=== PATIENT | female | born 2005 | race Caucasian/White ===

== ENCOUNTER 2024-07-31 12:50 | Outpatient (CLI) | payer OTHER, SELFPAY | END 2024-07-31 12:51 | disposition home or self-care (01) | LOC: NFLDREF 08-04 18:03 | PROVIDERS: Visit Provider Physician Assistant | DX: N39.0 Urinary tract infection, site not specified | CPT/HCPCS: 87086 ==

== ENCOUNTER 2024-09-15 14:16 | Outpatient (CLI) | payer OTHER, SELFPAY | END 2024-09-15 14:17 | disposition home or self-care (01) | LOC: AMB 09-21 14:57 | PROVIDERS: Visit Provider Emergency Medicine | DX: R10.9 Unspecified abdominal pain (principal) | CPT/HCPCS: A0425; A0427 ==

== ENCOUNTER 2024-09-15 14:51 | Emergency (ER) | payer OTHER, SELFPAY ==
[2024-09-15 15:02] VITALS: BP 110/59; PULSE 68; RESP 16; TEMP 36.1; O2SAT 98; BMI 27.5
--- NOTE | 2024-09-15 15:35 | CRLHL7_ITS ---
For Patients: As a result of the Century Cures Act, medical imaging exams and procedure reports are released immediately into your electronic medical record. You may view this report before your referring provider. If you have questions, please contact your health care provider. Indication: Abdomen pain. Technique: Abdomen 2 view. Comparison: None. Findings: Bowel: Bowel pattern is normal. The amount of colonic stool is within normal limits. Other: No sign of free air. No sign of soft tissue mass. No suspicious calcifications. Osseous structures are unremarkable for age. Impression: Unremarkable abdomen. Dictated by Chato Hollins MD @ 09/15/2024 6:21:11 PM (Electronically Signed)
[2024-09-15 15:52] LABS: Lactate* 1.2 mmol/L (0.5-1.9)
[2024-09-15 15:53] LABS: Basophils Percent Auto 0.1 % (0.0-3.0); Eosinophils Percent Auto 0.3 % (0.0-7.0); Hematocrit 38.8 % (33.0-51.0); Hemoglobin* 12.9 gm/dL (12.0-16.0); Immature Granulocytes Pct Auto 0.2 %; Lymphocytes Percent Auto 5.5 % (20-44); Mean Corpuscular HGB Conc 33 gm/dL (32-36); Mean Corpuscular Hemoglobin 28 pg (26-34); Mean Corpuscular Volume 85 fL (80-100); Neutrophils Percent Auto 88.9 % (42.0-72.0); Platelet Count* 234 K/uL (140-440); RDW Coefficient of Variation % 12.4 % (11.5-15.5); Red Blood Count 4.56 m/uL (4.00-5.20); White Blood Count* 11.12 K/uL (4.50-11.00)
[2024-09-15 15:56] LABS: Slide Review Reflex No
--- NOTE | 2024-09-15 16:10 | ED.GENADULT ---
HPI - General Adult General Chief complaint: Abdominal Pain Stated complaint: Abdominal pain Time Seen by Provider: 09/15/24 15:30 Source: patient and EMS Mode of arrival: EMS Limitations: no limitations History of Present Illness HPI narrative: 19-year-old female brought in via EMS for abdominal pain. Patient states that she has had suprapubic discomfort in the past and that this occurs multiple times before each period, but today the pain was so significant that ?I was on the floor screaming and I could not move?. Her friend called EMS and EMS brought her in. She did receive 2 mg of morphine in the ambulance. Patient states that right now her pain is a 3/10 and states that it is not significant. She states that is located in the suprapubic region and does not radiate. She states that she has had this pain before and she was told that she potentially has endometriosis. She denies any urinary symptoms at her new such as frequency, urgency or dysuria. No change in the color or sent of her urine. No changes in bowel habits. Her menses is due next week. She denies sexual activity. She denies new vaginal discharge. She denies vomiting but felt nauseated when she was in so much pain earlier today. She is unclear of how long her pain lasted today. She denies any weight changes. Related Data Home Medications ?Medication ?Instructions ?Recorded ?Confirmed Jennifer Csota.animal,bifid,infant cap PO 07/31/24 08/28/24 50 billion cell capsule,delayed rel (Fortify [place] Women Probiotic) ascorbic acid (vitamin C) 1,000 mg 1 g PO QDAY 07/31/24 08/28/24 tablet cholecalciferol (vitamin D3) 250 250 mcg PO QWEEK 07/31/24 08/28/24 mcg (10,000 unit) capsule cranberry 500 mg capsule 1,000 mg PO QDAY 07/31/24 08/28/24 hydroxyzine HCl 10 mg tablet 10 - 20 mg PO 3XD PRN anxiety 07/31/24 08/28/24 zinc citrate 11 mg chewable tablet mg PO .every three days 07/31/24 08/28/24 sertraline 50 mg tablet 50 mg PO 08/28/24 08/28/24 Allergies Allergy/AdvReac Type Severity Reaction Status Date / Time No Known Drug Allergies Allergy Verified 09/15/24 14:57 Review of Systems Status of ROS: Reports: 10 or more systems reviewed and unremarkable except as noted in History and below PFSH PFS Social History Narrative: [employer] student, from [facility] Occasional smoker, 1 per week. Denies alcohol or illicit drug use What is your current living situation?: I presently have a place to live In the past 12 months, utilities in danger of being shut off: no In past 12 months, lack of transportation kept you from medical appts, meetings, work, or getting things needed for daily living: no In the past 12 mos, have been you worried that your food would run out before you had money to buy more?: never true In the past 12 mos, the food you bought just didn't last and you didn't have money to buy more?: never true Smoking Status: Never smoker How often do you have a drink containing alcohol: never How often do you have six or more drinks on one occasion: Never AUDIT-C Alcohol total score: 0 Non-prescribed substance use: denies use How often does anyone, including family, friends and others, physically hurt you: never How often does anyone, including family, friends and others, insult or talk down to you: never How often does anyone, including family, friends and others, threaten you with harm: never How often does anyone, including family, friends and others, scream or curse at you: never service: No Exam Narrative: Exam Narrative: Well-nourished well-developed patient in no acute distress. Alert and oriented. Answers questions appropriately. Mood and affect are appropriate. Thoughts are goal oriented and rational. No tangential or magical thinking noted. Patient speaks in full sentences without needing to catch her breath. HEENT: Normocephalic atraumatic. Pupils are equally round reactive to light. Extraocular muscles are intact. Conjunctivae are moist without any icterus noted. Moist mucous membranes. Posterior pharynx is normal. Neck is soft without any lymphadenopathy or thyromegaly. No masses are appreciated. Cardiovascular: Heart is regular rate and rhythm S1 and S2 are present without any murmurs. Lungs: Clear to auscultation bilaterally no wheezes rhonchi or rales are appreciated. Patient takes deep breaths without any discomfort. Abdomen: Soft and nontender nondistended with normal bowel sounds. No guarding or rebound. No masses or organomegaly appreciated. Extremities: Bilateral lower extremities are without edema. Skin: Well perfused without any obvious rashes. Const: Vital Signs, click to edit/add: Vital Signs - 24 hr 09/15/24 15:02 Temperature 97.0 F L Pulse Rate [Pulse Oximeter] 68 Respiratory Rate 16 Blood Pressure [Ri ght Upper Arm] 110/59 L Pulse Oximetry 98 Oxygen Delivery Me thod Room Air Course Course ED Course: For differential diagnoses includes endometriosis, ovarian torsion that has now resolved, ectopic , UTI, constipation. Given the location of her pain things like pancreatitis, appendicitis, gastritis or diverticulitis or much less likely. Workup today was unremarkable. Her lab work did show any evidence of infection or inflammation. Abdominal x-ray , read by me, was unremarkable. Patient was monitor for almost 4 hours and did not have recurrence of her pain. She was drinking fluids without difficulty and was laying comfortably in bed. Vital Signs Vital signs: Initial Vital Signs Temperature 97.0 F L 09/15/24 15:02 Temperature Source Temporal Artery Scan 09/15/24 15:02 Pulse Rate 68 09/15/24 15:02 Pulse Rhythm Regular 09/15/24 15:02 Respiratory Rate 16 09/15/24 15:02 Blood Pressure 110/59 L 09/15/24 15:02 Blood Pressure Mean 76 09/15/24 15:02 Blood Pressure Position High-Fowlers 09/15/24 15:02 Pulse Oximetry 98 09/15/24 15:02 Oxygen Delivery Method Room Air 09/15/24 15:02 Vital Signs Temperature 97.0 F L 09/15/24 15:02 Pulse Rate 68 09/15/24 15:02 Respiratory Rate 16 09/15/24 15:02 Blood Pressure 110/59 L 09/15/24 15:02 Pulse Oximetry 98 09/15/24 15:02 Oxygen Delivery Method Room Air 09/15/24 15:02 Temperature 97.0 F L 09/15/24 15:02 Pulse Rate 68 09/15/24 15:02 Respiratory Rate 16 09/15/24 15:02 Blood Pressure 110/59 L 09/15/24 15:02 Pulse Oximetry 98 09/15/24 15:02 Oxygen Delivery Method Room Air 09/15/24 15:02 Medical Decision Making MDM Narrative Medical decision making narrative: Acute sharp abdominal pain, now resolved. Workup was unremarkable. Patient states that she does get severe cramping before her period and her period is due any day now. This certainly could be symptoms of her menstruation. She has been seen in the past for this. With normal blood work I do not think that further imaging is warranted at this time. Patient will follow-up outpatient. Lab Data Lab results reviewed: Yes I reviewed the patient's lab results Labs: Lab Results 09/15/24 09/15/24 Range/Units 15:48 Unknown WBC 11.12 H (4.50-11.00) K/uL RBC 4.56 (4.00-5.20) m/uL Hgb 12.9 (12.0-16.0) gm/dL Hct 38.8 (33.0-51.0) % MCV 85 (80-100) fL MCH 28 (26-34) pg MCHC 33 (32-36) gm/dL RDW Coeff of Nenita 12.4 (11.5-15.5) % Plt Count 234 (140-440) K/uL Neut % (Auto) 88.9 H (42.0-72.0) % Lymph % (Auto) 5.5 L (20-44) % [facility] % (Auto) 5.0 (0.0-11.0) % Eos % (Auto) 0.3 (0.0-7.0) % Baso % (Auto) 0.1 (0.0-3.0) % Neut # (Auto) 9.90 H (1.7-7.0) K/uL Lymph # (Auto) 0.60 L (0.90-2.90) K/uL [facility] # (Auto) 0.60 (0.00-0.90) K/UL Eos # (Auto) 0.00 (0.00-0.50) K/uL Baso # (Auto) 0.00 (0.00-0.30) K/uL Abs Immat Gran (auto) 0.00 (0.00-0.30) K/uL Imm/Tot Granulo (auto) 0.2 % Sodium 136 (135-149) mmol/L Potassium 3.5 L (3.6-5.1) mmol/L Chloride 103 (96-114) mmol/L Carbon Dioxide 22 (20-32) mmol/L Anion Gap 11 (7-15) mEq/L BUN 8 (5-24) mg/dL Creatinine 0.6 (0.5-1.5) mg/dL Estimated Creat Clear 129.15 Estimated GFR 132 ml/min Glucose 102 (60-115) mg/dL Lactate 1.2 (0.5-1.9) mmol/L Calcium 9.3 (8.4-10.6) mg/dL Total Bilirubin 0.6 (0.1-1.5) mg/dL Direct Bilirubin 0.1 (0.0-0.5) mg/dL AST 23 (12-35) U/L ALT 17 (4-35) U/L Alkaline Phosphatase 57 (40-150) U/L C-Reactive Protein < 0.5 L (0.5-1.0) mg/dL Total Protein 7.1 (6.0-8.3) g/dL Albumin 4.5 (3.3-5.0) g/dL Lipase 33 (23-300) U/L Urine Color Yellow (Yellow) Urine Appearance Clear (Clear) Urine pH 6.0 (5.0-8.5) Ur Specific Odell 1.025 (1.000-1.030) Urine Protein Negative (Negative) Urine Glucose (UA) Negative (Negative) Urine Ketones 2+ A (Negative) Urine Blood Negative (Negative) Urine Nitrite Negative (Negative) Urine Bilirubin Negative (Negative) Urine Urobilinogen 0.2 (0.2-1.0) Ur Leukocyte Esterase Negative (Negative) Urine RBC 0-2 (0-2) Urine WBC 0-2 (0-5) Ur Squamous Epith Cells None (None-Few) Amorphous Sediment Few A (None) Urine Bacteria Moderate A (None) Coarse Granular Casts Few A (None) Urine Mucus Few A (None) Urine HCG, Qual Negative (Negative) Imaging Data Abdominal x-ray: Attestation: I have reviewed the pertinent imaging results. Radiologist's impression: Technique: Abdomen 2 view. Comparison: None. Findings: Bowel: Bowel pattern is normal. The amount of colonic stool is within normal limits. Other: No sign of free air. No sign of soft tissue mass. No suspicious calcifications. Osseous structures are unremarkable for age. Impression: Unremarkable abdomen. Discharge Plan Discharge Clinical Impression: Abdominal pain Additional Instructions: Follow-up with your OBGYN. Prescriptions: No Action hydroxyzine HCl 10 mg tablet 10 - 20 mg PO 3XD PRN (Reason: anxiety) ascorbic acid (vitamin C) 1,000 mg tablet 1 g PO QDAY cranberry 500 mg capsule 1,000 mg PO QDAY Rx Instructions: administer with a meal zinc citrate 11 mg tablet,chewable PO .every three days Fortify [place] Women Probiotic 50 billion cell capsule,delayed release(DR/EC) PO cholecalciferol (vitamin D3) 250 mcg (10,000 unit) capsule 250 mcg PO QWEEK sertraline 50 mg tablet 50 mg PO Follow Up/Referrals: Provider,Not a Local [Primary Care Provider] - Stand Alone Forms: [employer] Info Instructions
[2024-09-15 16:15] LABS: Albumin* 4.5 g/dL (3.3-5.0); Chloride* 103 mmol/L (96-114); Sodium* 136 mmol/L (135-149)
[2024-09-15 16:18] LABS: Anion Gap 11 mEq/L (7-15); Bilirubin Direct* 0.1 mg/dL (0.0-0.5); Bilirubin Total* 0.6 mg/dL (0.1-1.5); Carbon Dioxide* 22 mmol/L (20-32); Creatinine* 0.6 mg/dL (0.5-1.5); Est. Creatinine Clearance* 129.15; Estimated Glomerular Filt Rate 132 ml/min; Potassium* 3.5 mmol/L (3.6-5.1)
[2024-09-15 16:19] LABS: Alanine Aminotransferase* 17 U/L (4-35); Alkaline Phosphatase* 57 U/L (40-150); Aspartate Amino Transferase* 23 U/L (12-35); Blood Urea Nitrogen* 8 mg/dL (5-24); Calcium* 9.3 mg/dL (8.4-10.6); Glucose* 102 mg/dL (60-115); Lipase* 33 U/L (23-300); Total Protein* 7.1 g/dL (6.0-8.3)
[2024-09-15 16:22] LABS: C Reactive Protein* < 0.5 mg/dL (0.5-1.0)
[2024-09-15 17:12] LABS: Appearance Urine Clear (Clear); Bilirubin Urine Negative (Negative); Blood Urine Negative (Negative); Color Urine Yellow (Yellow); Glucose Urine Negative (Negative); Ketones Urine 2+ (Negative); Leukocyte Esterase Urine Negative (Negative); Nitrite Urine Negative (Negative); Protein Urine Negative (Negative); Specific Gravity Urine 1.025 (1.000-1.030); Urobilinogen Urine 0.2 (0.2-1.0)
[2024-09-15 17:16] LABS: Ur HCG Qualitative* Negative (Negative)
[2024-09-15 17:44] LABS: Amorphous Sediment Urine Few; Bacteria Urine Moderate; RBC Urine 0-2 (0-2); WBC Urine 0-2 (0-5)
[2024-09-15 17:45] LABS: Coarse Granular Casts Urine Few; Mucus Urine Few
== END 2024-09-15 18:41 | disposition home or self-care (01) ==
PROVIDERS: Emergency Provider Family Medicine
DX: R10.9 Unspecified abdominal pain (principal)
CPT/HCPCS: 36415; 74019; 80048; 80076; 81001; 81025; 83605; 83690; 85025; 86140; 87086; 99283; 99284

== ENCOUNTER 2025-04-19 17:08 | Outpatient (CLI) | payer OTHER, SELFPAY | END 2025-04-19 17:09 | disposition home or self-care (01) | LOC: NFLDUCREF 17:09 | PROVIDERS: PCP Family Medicine; Visit Provider Family Medicine | DX: R30.0 Dysuria (principal); R35.0 Frequency of micturition; R39.15 Urgency of urination | CPT/HCPCS: 87086 ==

== ENCOUNTER 2025-06-11 12:45 | Outpatient (CLI) | payer OTHER, SELFPAY ==
--- NOTE | 2025-06-11 13:00 | CRLHL7_ITS ---
For Patients: As a result of the Century Cures Act, medical imaging exams and procedure reports are released immediately into your electronic medical record. You may view this report before your referring provider. If you have questions, please contact your health care provider. CLINICAL HISTORY: endometriosis COMPARISON: None. TECHNIQUE: 2D medrano-scale and color Doppler images were acquired of the pelvis using a transvaginal approach. FINDINGS: Uterus measures 7.2 x 3.5 x 4.7 cm. No uterine fibroid. The endometrial lining appears normal and measures 6.9 mm in thickness. The left ovary measures 2.6 x 0.7 x 1.9 cm in size and the right ovary measures 2.3 x 1.6 x 2.5 cm. The ovaries demonstrate normal arterial and venous blood flow on color Doppler analysis. There are no suspicious fluid collections within the cul-de-sac. IMPRESSION: No abnormalities of the uterus or ovaries identified. Dictated by Michael Hatch MD @ 06/11/2025 1:23:50 PM (Electronically Signed)
== END 2025-06-11 12:46 | disposition home or self-care (01) ==
LOC: US 12:46
PROVIDERS: PCP Family Medicine; Visit Provider Physician Assistant
DX: N80.9 Endometriosis, unspecified (principal)
CPT/HCPCS: 76830; 93976